=== PATIENT | male | born 1990 | race Caucasian/White ===

== ENCOUNTER 2019-10-08 09:14 | Emergency (ER) | payer OTHER ==
[2019-10-08 09:23] VITALS: BP 132/77; PULSE 83; RESP 18; TEMP 98.2
--- NOTE | 2019-10-08 09:32 | ED ---
ENT HPI - General Chief complaint: ENT Stated complaint: ear pain Time Seen by Provider: 10/08/19 09:24 Source: patient, RN notes reviewed Mode of arrival: ambulatory Limitations: no limitations - History of Present Illness Initial comments: 28-year-old male presents emergency Department with chief complaint left ear pain. Patient states that he has been sick recently with nasal congestion slight cough. Besides he woke up with left ear pain states feels plugged. Patient denies any fevers chills. Has NO KNOWN DRUG ALLERGIES. Patient denies any major health issues. Denies chest pain or shortness breath no nausea vomiting. - Related Data Previous Rx's Medication Instructions Recorded Amoxicillin/Potassium Clav 1 tab PO Q12HR #20 tab 10/08/19 [Augmentin 875-125 Tablet] Allergies Allergy/AdvReac Type Severity Reaction Status Date / Time iodine Allergy Rash/Hives Verified 10/08/19 09:17 Review of Systems ROS Statement: Those systems with pertinent positive or pertinent negative responses have been documented in the HPI. ROS Other: All systems not noted in ROS Statement are negative. Past Medical History Past Medical History: Asthma History of Any Multi-Drug Resistant Organisms: None Reported Past Surgical History: Adenoidectomy, Tonsillectomy Past Psychological History: Anxiety, PTSD Smoking Status: Current every day smoker Past Alcohol Use History: Rare Past Drug Use History: None Reported General Exam Limitations: no limitations General appearance: alert, in no apparent distress Head exam: Present: atraumatic, normocephalic, normal inspection Eye exam: Present: normal appearance, PERRL, EOMI. Absent: scleral icterus, conjunctival injection, periorbital swelling ENT exam: Present: mucous membranes moist, normal external ear exam. Absent: normal oropharynx (Postnasal drainage), TM's normal bilaterally (Left TM mild fluid, mild erythema) Neck exam: Present: normal inspection, full ROM. Absent: tenderness, meningismus, lymphadenopathy Respiratory exam: Present: normal lung sounds bilaterally. Absent: respiratory distress, wheezes, rales, rhonchi, stridor Cardiovascular Exam: Present: regular rate, normal rhythm, normal heart sounds. Absent: systolic murmur, diastolic murmur, rubs, gallop, clicks Course Vital Signs 10/08/19 09:18 Temperature 98.2 F Pulse Rate 83 Respiratory 18 Rate Blood Pressure 132/77 O2 Sat by Pulse 99 Oximetry Medical Decision Making - Medical Decision Making Patient has mild otitis media with effusion, underlying sinusitis issue. Patient placed on antibiotics return parameters were discussed. Disposition Clinical Impression: Otitis media Disposition: HOME SELF-CARE Condition: Stable Instructions (If sedation given, give patient instructions): Earache (ED) Additional Instructions: Please return to the Emergency Department if symptoms worsen or any other concerns. Prescriptions: Amoxicillin/Potassium Clav [Augmentin 875-125 Tablet] 1 tab PO Q12HR #20 tab Is patient prescribed a controlled substance at d/c from ED?: No Referrals: Josué Sales MD [Primary Care Provider] - 1-2 days Time of Disposition: 09:32
== END 2019-10-08 09:46 | disposition home or self-care (01) ==
LOC: EC 09:14
DX: H65.92 Unspecified nonsuppurative otitis media, left ear (principal); F17.200 Nicotine dependence, unspecified, uncomplicated; Z91.048 Other nonmedicinal substance allergy status
CPT/HCPCS: 99282